=== PATIENT | female | born 1965 | race Caucasian/White ===

== ENCOUNTER 2016-11-18 21:33 | Emergency (ER) | payer BC ==
[2016-11-18 21:44] VITALS: PULSE 79; TEMP 98.3; BMI 29.8
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
[2016-11-18 22:57] LABS: BASOPHIL 0.8 % (0-2.0); EOSINOPHIL 2.9 % (0-4.5); MCHC 32.7 g/dl (32.0-36.0); MEAN CELL VOLUME 91.7 fl (80-96); MEAN PLT VOLUME 10.1 fl (7.5-11.1); NEUTROPHILS 53.3 % (42.8-82.8); PLATELET COUNT 189 K/MM3 (134-434); RDW 14.2 % (11.6-15.6); WHITE BLOOD COUNT 7.1 K/mm3 (4.0-10.0)
[2016-11-18 23:19] LABS: ANION GAP 10 (8-16); CALCIUM 9.2 mg/dL (8.5-10.1); CO2 30 mmol/L (21-32); CREATININE 0.7 mg/dL (0.55-1.02); GLUCOSE,RANDOM 244 mg/dL (74-106)
[2016-11-18 23:21] LABS: CPK 81 IU/L (26-192); TROPONIN I < 0.02 ng/ml (0.00-0.05)
[2016-11-18 23:53] VITALS: BP 136/80
--- NOTE | 2016-11-19 11:06 | EKG ---
Test Reason : Blood Pressure : / mmHG Vent. Rate : 083 BPM Atrial Rate : 083 BPM P-R Int : 132 ms QRS Dur : 088 ms QT Int : 388 ms P-R-T Axes : 070 062 070 degrees QTc Int : 455 ms BASELINE ARTIFACT NORMAL SINUS RHYTHM NONSPECIFIC ST AND T WAVE ABNORMALITY ABNORMAL ECG NO PREVIOUS ECGS AVAILABLE Confirmed by ANIVAL SANDRA MD ([id number]) on 11/19/2016 11:05:59 AM Referred By: Confirmed By:ANIVAL SANDRA MD
== END 2016-11-18 23:43 | disposition home or self-care (01) ==
LOC: JER 21:33
DX: E11.65 Type 2 diabetes mellitus with hyperglycemia (principal); Z79.84 Long term (current) use of oral hypoglycemic drugs; I10 Essential (primary) hypertension; E78.00 Pure hypercholesterolemia, unspecified; K21.9 Gastro-esophageal reflux disease without esophagitis
CPT/HCPCS: 36415; 80048; 84484; 85025; 93005; 93010; 99281-25